=== PATIENT | female | born 1990 | race African-American/Black ===

== ENCOUNTER 2017-01-07 15:30 | Emergency (ER) | payer MEDICAID ==
[~2017-01-07] VITALS: Ht 172.7 cm; Wt 73.0 kg
[~2017-01-07 15:30] MED LIST: PREN-22 PO
[2017-01-07 15:34] VITALS: BP 124/75
== END 2017-01-07 22:50 | disposition left against medical advice (07) ==
LOC: ER 15:54
DX: R11.2 Nausea with vomiting, unspecified (principal); Z53.21 Procedure and treatment not carried out due to patient leaving prior to being seen by health care provider

== ENCOUNTER 2017-05-18 09:36 | Emergency (ER) | payer MEDICAID ==
[~2017-05-18] VITALS: Ht 165.1 cm; Wt 60.0 kg
[2017-05-18 09:37] VITALS: BP 150/91
[2017-05-18] MEDS ORDERED: ONDANSETRON HCL 4MG TABLET PO ONE (11:45)
== END 2017-05-18 12:39 | disposition home or self-care (01) ==
LOC: ER 10:07
DX: J11.1 Influenza due to unidentified influenza virus with other respiratory manifestations (principal); F12.10 Cannabis abuse, uncomplicated
CPT/HCPCS: 82962; 87804; 99284; Q0162

== ENCOUNTER 2017-06-16 17:51 | Emergency (ER) | payer MEDICAID ==
[~2017-06-16] VITALS: Ht 170.2 cm; Wt 74.0 kg
[2017-06-16 18:55] LABS: CLARITY URINE CLEAR (CLEAR); COLOR URINE YELLOW (YELLOW); KETONES URINE NEGATIVE (NEGATIVE); LEUKOCYTE ESTERASE URINE TRACE (NEGATIVE); NITRITE URINE NEGATIVE (NEGATIVE); OCCULT BLOOD URINE NEGATIVE (NEGATIVE); PROTEIN URINE NEGATIVE (NEGATIVE); SPECIFIC GRAVITY URINE 1.018 (1.005-1.030); UROBILINOGEN URINE 0.2 E.U./dL (0.2-1.0)
[2017-06-16] MEDS ORDERED: SODIUM CHLORIDE 0.9% 1,000 ML IV ONE (22:38)
[2017-06-16] MEDS ORDERED: KETOROLAC 30MG/ML VIAL IV STA (22:38)
[2017-06-17 00:24] LABS: CHLORIDE 108 mEq/L (98-107)
[2017-06-17 00:26] LABS: BASOPHILS % 1.6 % (0.0-2.0); EOSINOPHILS % 2.8 % (0.0-5.0); HEMATOCRIT. 28.4 % (36.0-48.0); HEMOGLOBIN. 8.6 g/dL (12.0-16.0); LYMPHOCYTES % 32.3 % (20.0-50.0); MEAN CORPUSCULAR HEMOGLOBIN 20.7 pg (28.0-32.0); MEAN CORPUSCULAR VOLUME 68.2 fL (81.0-99.0); MONOCYTES % 12.2 % (2.0-8.0); NEUTROPHILS % 51.1 % (40.0-76.0); PLATELET 338 x1000/uL (130-400); RED BLOOD CELL COUNT 4.17 mill/uL (4.2-5.4); RED CELL DISTRIBUTION WIDTH 20.6 % (11.6-14.6)
[2017-06-17 00:50] LABS: PLATELET ESTIMATE NORMAL
[2017-06-17 02:46] VITALS: BP 115/77
== END 2017-06-17 02:48 | disposition home or self-care (01) ==
LOC: ER 19:26
DX: N39.0 Urinary tract infection, site not specified (principal); R05 Cough; F17.200 Nicotine dependence, unspecified, uncomplicated; F12.10 Cannabis abuse, uncomplicated
CPT/HCPCS: 36415; 71045; 80053; 81003; 81025; 83690; 85025; 96361; 96374; 99285; J1885; J7030; Z7610